=== PATIENT | female | born 1990 | race Caucasian/White ===

== ENCOUNTER 2020-04-10 16:20 | Emergency (ER) | payer OTHER ==
[~2020-04-10] VITALS: Ht 162.6 cm; Wt 61.4 kg
[2020-04-10] MEDS ORDERED: IRON1TAB2 PO (16:34)
[2020-04-10] MEDS ORDERED: PURE500C5 PO (16:34)
[2020-04-10] MEDS ORDERED: ASPI1CHW3 PO (16:34)
[2020-04-10] MEDS ORDERED: VALT1TAB PO (16:34)
[2020-04-10] MEDS ORDERED: ZOLO50TA PO (16:34)
[2020-04-10 17:35] LABS: HEMATOCRIT 34.6 % (36.0-47.0); HEMOGLOBIN 11.2 g/dl (12.0-15.5); MEAN CORPUSCULAR HEMOGLOBIN 29.3 pg (27.0-33.0); MEAN CORPUSCULAR HGB CONC 32.4 g/dl (32.0-36.5); MEAN CORPUSCULAR VOLUME 90.6 fl (80.0-96.0); PLATELET COUNT, AUTOMATED 332 10^3/uL (150-450); RED BLOOD COUNT 3.82 10^6/uL (4.00-5.40); WHITE BLOOD COUNT 12.8 10^3/uL (4.0-10.0)
--- NOTE | 2020-04-10 19:46 | REPVR ---
PROCEDURE INFORMATION: Exam: US , Limited Exam date and time: 04/10/2020 6:59 PM Age: 30 years old Clinical indication: Lmp or gestational age (in weeks): 15; Other: Vag bleeding; ; Additional info: Bleeding/cramping TECHNIQUE: Imaging protocol: Real-time ultrasound of the maternal uterus with image documentation. Exam focused on the clinical indication. COMPARISON: No relevant prior studies available. FINDINGS: Single intrauterine is present in breech presentation. Placenta is anterior and free of the cervical os. Cervix measures 3.2 cm in length with closed internal os. Amniotic fluid volume is lower limit normal, with 4 quadrant index of 9.3 cm. heart motion is regular in rhythm with a rate of 156 beats/min. survey and biometric measurements were not obtained IMPRESSION: Single IUP in breech presentation with no placental abnormality, with closed cervix and normal amniotic fluid volume. Electronically signed by: Hematn Valencia On 04/10/2020 19:46:34 PM
[2020-04-10 20:22] VITALS: BP 130/69
== END 2020-04-10 20:26 | disposition home or self-care (01) ==
LOC: M ED 16:20
DX: O46.92 Antepartum hemorrhage, unspecified, second trimester (principal); O26.899 Other specified pregnancy related conditions, unspecified trimester; R10.2 Pelvic and perineal pain; O99.512 Diseases of the respiratory system complicating pregnancy, second trimester; J45.909 Unspecified asthma, uncomplicated; O99.332 Smoking (tobacco) complicating pregnancy, second trimester; Z3A.15 15 weeks gestation of pregnancy; Z79.899 Other long term (current) drug therapy

== ENCOUNTER 2020-05-25 18:24 | Outpatient (CLI) | payer OTHER ==
[~2020-05-25 18:24] MED LIST: ASPI1CHW3 PO; IRON1TAB2 PO; PURE500C5 PO; VALT1TAB PO; ZOLO50TA PO
[2020-05-25 18:38] VITALS: BP 126/65
[2020-05-25] MEDS ORDERED: PEPC1TAB5 PO (18:59)
[2020-05-25 19:15] LABS: APPEARANCE, URINE CLEAR (CLEAR); BACTERIA, URINE AUTO NEGATIVE (NEGATIVE); BILIRUBIN, URINE AUTO NEGATIVE (NEGATIVE); BLOOD, URINE BLOOD NEGATIVE (NEGATIVE); COLOR, URINE COLORLESS (YELLOW); GLUCOSE, URINE (UA) AUTO NEGATIVE (NEGATIVE); KETONE, URINE AUTO NEGATIVE (NEGATIVE); LEUKOCYTE ESTERASE, URINE AUTO NEGATIVE (NEGATIVE); NITRITE, URINE AUTO NEGATIVE (NEGATIVE); PROTEIN, URINE AUTO NEGATIVE (NEGATIVE); RBC, URINE AUTO 0 /HPF (0-3); SQUAMOUS EPITHELIAL CELL UR AU 0 /HPF (0-6); UROBILINOGEN, URINE AUTO 0.2 mg/dL (0.0-2.0); WBC, URINE AUTO 0 /HPF (0-3)
[2020-05-25] MEDS ORDERED: ACETAMINOPHEN 500 MG TAB PO ONE (21:30)
--- NOTE | 2020-05-25 21:42 | REPVR ---
PROCEDURE INFORMATION: Exam: US ; Follow up Exam date and time: 05/25/2020 9:21 PM Age: 30 years old Clinical indication: Lmp or gestational age (in weeks): 22; Antepartum complications; Bleeding; ; Additional info: Subchorionic 8x7x. 8 cm vaginal bleeding need cervical length TECHNIQUE: Imaging protocol: Transabdominal ultrasound of the uterus, real time with image documentation. Follow-up (eg, re-evaluation of size by measuring standard growth parameters and amniotic fluid volume, re-evaluation of organ system(s) suspected or confirmed to be abnormal on a previous scan). COMPARISON: Obs. Limited, [facility] [place] 04/10/2020 6:31 PM FINDINGS: Gestation: Single intrauterine fetus. heart rate: heartbeat of 145 bpm. Presentation: Cephalic presentation. anatomy: The intracranial structures, nose/lips, face, spine, four-chamber heart, LVOT, RVOT, stomach, cord, cord insertion and left kidney are normal. There is mild right renal caliectasis. There is suggestion of a right clubfoot. The remaining extremities are within normal limits. Placenta: Posterior subchronic hemorrhage measuring 9.6 x 1.4 x 4.9 cm. Anterior placenta. BIOMETRY: Gestational age (AUA): The composite gestational age by ultrasound is 21 weeks 5 days. Estimated due date (AUA): The EDC is 09/30/2020. Estimated weight: The estimated weight is 457 grams and is 37th percentile. Biparietal diameter: The BPD measures 5.1 cm suggesting an age of 21 weeks 3 days. Head circumference: The head circumference measures 18.9 cm suggesting an age of 21 weeks 1 day. Abdominal circumference: The abdominal circumference measures 16.8 cm suggesting an age of 21 weeks 6 days. Femur length: The femur length measures 3.8 cm suggesting an age of 22 weeks 1 day. MATERNAL: Cervix: The cervix is closed and measures 4.0 cm. IMPRESSION: 1. Single live intrauterine fetus in cephalic presentation with a composite age of 21 weeks 5 days. The EDC is 09/30/2020. 2. Posterior subchronic hemorrhage which is of similar size overall since 04/10/2020. 3. Right clubfoot and mild right renal caliectasis. Electronically signed by: Yefri Myers On 05/25/2020 21:42:44 PM
--- NOTE | 2020-05-25 23:53 | IPNPDOC ---
Text Note Date of Service The patient was seen on 05/25/20. NOTE Item Value Date Time Urine Color COLORLESS 05/25/201849 Urine Appearance CLEAR 05/25/201849 Urine pH 7.0 UNITS 05/25/201849 Urine Specific [place] 1.000 L 05/25/201849 Urine Protein NEGATIVE mg/dL 05/25/201849 Urine Glucose (Auto)(UA) NEGATIVE mg/dL 05/25/201849 Urine Ketones (Auto) NEGATIVE mg/dL 05/25/201849 Urine Blood NEGATIVE 05/25/201849 Urine Nitrite NEGATIVE 05/25/201849 Urine Bilirubin NEGATIVE 05/25/201849 Urine Urobilinogen 0.2 mg/dL 05/25/201849 Urine Leukocyte Esterase (Auto) NEGATIVE 05/25/201849 Urine WBC (Auto) 0 /HPF 05/25/201849 Urine RBC (Auto) 0 /HPF 05/25/201849 Urine Hyaline Casts (Auto) 0 /LPF 05/25/201849 Urine Bacteria (Auto) NEGATIVE 05/25/201849 Urine Squamous Epithelial Cells 0 /HPF 05/25/201849 30 YO SEEN AT 22 WEEKS LMP12/23/19 EDC 09/28/20. HISTORY CRAMPING PAST HISTORY PTD AT 36 WEEKS IOL FOR CHOLESTASIS HISTORY OF SIDS DEPRESSION DUE TO LOSS, MORNING SEES BH ON ZOLOFT. PTL AT 33.3 WEEKS MGSO4 WAS 3 CM RBBB LEEP CERVIX HSV PROPHYLAXIS ASTHMA SMOKER GRIEF LOSS UNRESOLVED SUBCHORIONIC HEMORRHAGE AT 13 WEEKS CONTINUES TO BLEED. US 04/10/2020 NOT REPORTED BUT IMAGES DEMONSTRATE 11X4X2 CM POSTERIOR . REPEAT US SIZE 8.5X 6.74X .8 CM CERVICAL LENGTH 3.0 CM NO FUNNELING TODAY CAME WITH CRAMPING AND BLEEDING. STERILE SPECULUM EXAM OLD BLOOD CERVIX POSTERIOR CLOSED ATTEMPTED FFN BUT DUE TO BLOOD NOT EFFECTIVE VAGINAL MICRO EXAM BV NEGATIVE. US TODAY VERTEX SUBCHORIONIC HEMORRHAGE 9.6X1.4X4.9CM POSTERIOR EFW AT 37%. CERVIX CLOSED 4.0 CM RIGHT CLUB FOOT . NO LOW LYING PLACENTA . URINE 1000 PH 7.0 ALL NEGATIVE PLAN . REVIEWED PROGESTERONE IM OR SUPPOSITORY MAY BE HELPFUL, REVIEWED SMOKING CESSATION, REVIEWED CERVICAL LENGTH Q 2 WEEKS AND GROWTH US AT 28 WEEKS 32 WEEKS AND MONITORING AT 32 WEEKS EXPRESSED UNDERSTANDING OF PLAN 1 HOUR ALL QUESTIONS ANSWERED . PATIENT DISCHARGED WITH PRECAUTIONS UNDELIVERED . STEROID OPTION REVIEWED , VS,Fishbone, I+O VS, Fishbone, I+O Vital Signs Date Time Temp Pulse Resp B/P (MAP) Pulse Ox O2 Delivery O2 Flow Rate FiO2 05/25/20 18:38 75 126/65 (85) 05/25/20 18:37 98.7 18 Ras Bonilla MD May 25, 2020 23:40
== END 2020-05-25 22:18 | disposition home or self-care (01) ==
LOC: M LDO 18:24
PROVIDERS: ATTEND Obstetrics & Gynecology
DX: O46.8X2 Other antepartum hemorrhage, second trimester (principal); Z3A.22 22 weeks gestation of pregnancy
CPT/HCPCS: 76816; 81001; G0378; G0463

== ENCOUNTER 2020-08-06 12:06 | Outpatient (CLI) | payer OTHER ==
[~2020-08-06] VITALS: Ht 162.6 cm; Wt 67.3 kg
[~2020-08-06 12:06] MED LIST changes: +PEPC1TAB5 PO
[2020-08-06 12:25] VITALS: BP 112/76
== END 2020-08-06 13:18 | disposition home or self-care (01) ==
LOC: M LDO 12:06
PROVIDERS: ATTEND Obstetrics & Gynecology
DX: O46.93 Antepartum hemorrhage, unspecified, third trimester (principal); Z3A.32 32 weeks gestation of pregnancy
CPT/HCPCS: 59025; 76815; G0378; G0463

== ENCOUNTER 2020-08-19 06:02 | Observation (INO) | payer OTHER ==
[2020-08-19] VITALS (11 sets, daily range): BP systolic 113–133; BP diastolic 59–86
[~2020-08-19] VITALS: Ht 162.6 cm; Wt 70.0 kg
[2020-08-19 06:23] LABS: HEMATOCRIT 35.9 % (36.0-47.0); HEMOGLOBIN 11.8 g/dl (12.0-15.5); MEAN CORPUSCULAR HGB CONC 32.9 g/dl (32.0-36.5); MEAN CORPUSCULAR VOLUME 91.3 fl (80.0-96.0); PLATELET COUNT, AUTOMATED 193 10^3/uL (150-450); RED BLOOD COUNT 3.93 10^6/uL (4.00-5.40); WHITE BLOOD COUNT 8.6 10^3/uL (4.0-10.0)
[2020-08-19 06:34] LABS: INR 0.87; PARTIAL THROMBOPLASTIN TIME 26.1 SECONDS (24.2-38.5)
--- NOTE | 2020-08-19 07:05 | IPNPDOC ---
Text Note Date of Service The patient was seen on 08/19/20. NOTE Mirian is a 30yo at 34+2wks presenting for c/o waking up to vaginal b leeding in her sleep. She reports she had heavy VB with passage of clots. Denies DFM or LOF. Endorses feeling ctx's but states they are not painful. She reports she was adhering to pelvic rest precautions with no intercourse and no heavy lifting. She denies any pain at this time. Notes bleeding has decreased since arrival to L&D. Antepartum course c/b: Asthma LEEP HSVII Tobacco use in GERD IBS Anxiety/depression Son of SIDS at 4 months of age Vitals: normotensive, afebrile NST: reactive [place]: uterine irritability seen PE: General: AAOx3, in NAD, resting comfortably in bed HEENT: NC/AT airway patent ad self-maintained ABD: soft, nontender, gravid (S=D) Ext: no edema noted : small amount of old blood in vagina SVE: /- Rectum: large amout of stool palpated in recturm during SVE Labs: Laboratory Tests 08/19/20 06:11 RADS: TAUS: cephalic presentation, BERTIN 15.2cm, +FM, +FCA at 150pm. A/P: 30yo at 34+2wks presenting for c/o heavy VB. Patient has known history of large MARCY. Suspect etiology of bleeding is from MARCY. Mother and status reassuring at this time. Abruption labs (CBC, coags, fibrinogen, KB, 2&C for 2U) BTMZ 12mg q24h x2 doses GBS collected Urine drug screen pending Continuous EFM Patient on bedrest with pathroom privileges NPO except and ice chips Plan for expectant mgmt at this time in observation until 2nd dose of BTMZ with low threshold to move to delivery if develops worsening sx. FAITH, OB staff VS,Amie, I+O VS, Amie, I+O Laboratory Tests 08/19/20 06:11 JACEY CUEVAS DO Aug 19, 2020 07:05
[2020-08-19 08:22] LABS: AMPHETAMINES URINE REFLEX NEGATIVE (NEGATIVE); BARBITURATES URINE REFLEX NEGATIVE (NEGATIVE); BENZODIAZEPINES URINE REFLEX NEGATIVE (NEGATIVE); CANNABINOIDS URINE REFLEX NEGATIVE (NEGATIVE); COCAINE METABOLITE URINE REFLE NEGATIVE (NEGATIVE); METHADONE URINE REFLEX NEGATIVE (NEGATIVE); OPIATES URINE REFLEX NEGATIVE (NEGATIVE); PHENCYCLIDINE URINE REFLEX NEGATIVE (NEGATIVE)
[2020-08-19 14:13] LABS: BASO % 0.1 % (0.0-1.0); HEMATOCRIT 34.3 % (36.0-47.0); HEMOGLOBIN 11.4 g/dl (12.0-15.5); LYMPH # 0.8 10^3/uL (1.5-5.0); LYMPH % 8.2 % (24.0-44.0); MEAN CORPUSCULAR HEMOGLOBIN 30.5 pg (27.0-33.0); MEAN CORPUSCULAR HGB CONC 33.2 g/dl (32.0-36.5); MEAN CORPUSCULAR VOLUME 91.7 fl (80.0-96.0); MONO # 0.1 10^3/uL (0.0-0.8); NEUTROPHILS # 8.2 10^3/uL (1.5-8.5); NEUTROPHILS % 89.9 % (36.0-66.0); PLATELET COUNT, AUTOMATED 187 10^3/uL (150-450); RED BLOOD COUNT 3.74 10^6/uL (4.00-5.40); WHITE BLOOD COUNT 9.1 10^3/uL (4.0-10.0)
[2020-08-19 14:21] LABS: INR 0.92; PROTHROMBIN TIME 12.6 SECONDS (12.5-14.3)
[2020-08-19 14:22] LABS: PARTIAL THROMBOPLASTIN TIME 25.4 SECONDS (24.2-38.5)
--- NOTE | 2020-08-19 23:30 | IPNPDOC ---
Text Note Date of Service The patient was seen on 08/19/20. NOTE Mirian reports that her VB has decreased to only spotting when wiping after u sing the bathroom. She has had a BM without difficulty. She endorses good FM. Denies feeling pain with ctx's but endorses occasional ctx's. Denies LOF. She is tolerating a regular diet. Vitals: normotensive, afebrile FHRT: cat I with baseline 140bpm with mod variability, +accels, no decels Past[place]: rare ctx's hourly that patient not feeling PE: General: AAOx3, in NAD, resting comfortably in bed HEENT: NC/AT airway patent ad self-maintained ABD: soft, nontender, gravid (S=D) Ext: no edema noted : no blood seen on perineum Labs: Abruption labs have remained stable since admission on serial testing Laboratory Tests 08/19/20 06:11 08/19/20 14:04 A/P: 30yo at 34+2wks admitted to obs for concern of heavy VB in the setting of a MARCY that has been monitored throughout her antepartum course now with resolved VB to spotting. Reassuring and maternal status. Stable labs on serial testing with neg KB. At this time, do not suspect placental abruption but passage of clot from MARCY. Will continue to monitor closely in observation at this time. Plan to give second dose of BTMZ at 24hr milka and if patient remains stable will disposition home at that time. Patient in agreement with plan of care and desires to proceed. All questions answered. Home meds ordered. VS,Fishbone, I+O VS, Fishbone, I+O Laboratory Tests 08/19/20 06:11 08/19/20 14:04 Vital Signs Date Time Temp Pulse Resp B/P (MAP) Pulse Ox O2 Delivery O2 Flow Rate FiO2 08/19/20 19:32 97.8 77 18 126/64 (84) JACEY CUEVAS DO Aug 19, 2020 23:26
[2020-08-20 02:41] VITALS: BP 111/59
--- NOTE | 2020-08-20 05:19 | IPNPDOC ---
Text Note Date of Service The patient was seen on 08/20/20. NOTE Mirian reports pain in the left side of her abdomen and her back. Denies feel ing ctx's but rather pain in her side/back. Endorses good FM. Reports VB has resolved. Denies LOF. She is tolerating a regular diet. Vitals: normotensive, afebrile FHRT: cat I with baseline 140bpm with mod variability, +accels, no decels [place]: ctx's q5-8 min irregularly PE: General: AAOx3, in NAD, resting comfortably in bed HEENT: NC/AT airway patent ad self-maintained ABD: soft, nontender, gravid (S=D) Ext: no edema noted : SVE unchanged at with no blood seen on glove Labs: Abruption labs have remained stable since admission on serial testing A/P: 30yo at 34+3wks admitted to OBS for c/o VB with bleeding now resolved. Patient has been resting all night but had onset of left-sided abdominal/flank and back pain. SVE unchanged from admission with no VB noted on exam. Appreciated patient has not been repositioning in the bed and laying at an angle all night. Patient repositioned to right side-lying with bed flat with improvement in her pain. FHRT cat I. Will give 500ml LR bolus now and 1000mg of tylenol for additional pain relief. Plan to give 2nd dose of BTMZ at 24hrs. If patient remains stable, anticipate disposition home later this morning with close outpatient f/u. All questions answered. Larry, OB Staff VS,Amie, I+O VS, Amie I+O Laboratory Tests 08/19/20 06:11 08/19/20 14:04 Vital Signs Date Time Temp Pulse Resp B/P (MAP) Pulse Ox O2 Delivery O2 Flow Rate FiO2 08/19/20 22:59 85 18 131/71 (91) 08/19/20 22:04 98.9 I&O- Last 24 Hours up to 6 AM 08/20/20 06:00 Intake Total 3060 ml Balance 3060 ml JACEY CUEVAS DO Aug 20, 2020 05:19
[2020-08-20 05:52] VITALS: BP 112/56
[2020-08-20 07:08] VITALS: BP 121/65
[2020-08-20 08:05] VITALS: BP 106/55
== END 2020-08-20 09:25 | disposition home or self-care (01) ==
LOC: M LDO 06:02 → M OBS 06:03 → M LDO 08-20 09:25
DX: O99.613 Diseases of the digestive system complicating pregnancy, third trimester (principal); K59.00 Constipation, unspecified; O46.93 Antepartum hemorrhage, unspecified, third trimester; Z3A.34 34 weeks gestation of pregnancy; O99.513 Diseases of the respiratory system complicating pregnancy, third trimester; J45.909 Unspecified asthma, uncomplicated; K21.9 Gastro-esophageal reflux disease without esophagitis
CPT/HCPCS: 36415; 59025; 76815; 80307; 85025; 85027; 85384; 85460; 85610; 85730; 86850; 86900; 86901; 86920; 87081; 96360; 96361; 96372; 96375; J0702

== ENCOUNTER 2020-08-23 10:00 | Outpatient (CLI) | payer OTHER ==
[~2020-08-23] VITALS: Ht 162.6 cm; Wt 69.7 kg
[2020-08-23 10:23] VITALS: BP 128/77
[2020-08-23] MEDS ORDERED: PRENTAB9 PO (10:31)
[2020-08-23 12:21] VITALS: BP 116/73
[2020-08-23 12:54] VITALS: BP 127/77
--- NOTE | 2020-08-23 13:14 | IPNPDOC ---
Obstetrical Progress Note Date of Service Aug 23, 2020 Subjective 30 yo @ 34+6 by lmp c/w 9w5d us who presents for labor check. reports she has been otto since midnight, cx were initially every 3-5min, now has spaced out to 6-8min. she reports that she is here because of pain associated with contractions. she reports that she has also noted some pink discharge assocated with mucus. she denies any LOF, DM. She has no other concerns. FHR: 140, Mod justin,+accels,-Decels-- Reactive NST SVE: 2/70/-2, Unchanged 2hrs later after observation ABD: TAUS: Cephalic, MVP: 5.3cm ext: Grossly normal A/P 30 yo @ 34+6 by lmp c/w 9w5d us who presents for labor check.Hemodynamically sable. unchanged after 2 hrs of observation, was discharge on thursday and was 2 cm at that time. not in labor. -Reactive NST -NORMAL Fluids -Given strict return precautions -F/U in a week for COB as previously scheduled. Objective Vital Signs Date Time Temp Pulse Resp B/P (MAP) Pulse Ox O2 Delivery O2 Flow Rate FiO2 08/23/20 10:28 97 08/23/20 10:23 99.2 95 18 128/77 (94) JOSEE HANNAH MD Aug 23, 2020 13:14
== END 2020-08-23 13:07 | disposition home or self-care (01) ==
LOC: M LDO 10:00
PROVIDERS: ATTEND Obstetrics & Gynecology
DX: O47.02 False labor before 37 completed weeks of gestation, second trimester (principal); Z3A.34 34 weeks gestation of pregnancy
CPT/HCPCS: 59025; 76815; G0378; G0463

== ENCOUNTER 2020-08-23 22:59 | Inpatient (IN) | payer OTHER ==
[~2020-08-23] VITALS: Ht 162.6 cm; Wt 70.7 kg
[~2020-08-23 22:59] MED LIST changes: +PRENTAB9 PO
[2020-08-23 23:25] VITALS: BP 138/82
[2020-08-24] VITALS (44 sets, daily range): BP systolic 102–156; BP diastolic 54–93
[2020-08-24] MEDS ORDERED: OXYTOCIN DRIP 30 UNITS in IV 1 EA IV PRN (00:25)
--- NOTE | 2020-08-24 01:21 | HPEPDOC ---
Obstetrical History & Physical General Date of Admission Aug 23, 2020 at 23:49 History of Present Illness Ms. Raymundo is a 30yo at 35+0 by LMP and 9wk US presenting in early labor. She was admitted over the weekend for rule out pre-term labor and received a course of BMTZ. She was seen earlier today and had not made cervical change. She now notes her contractions are more painful and regular. She endorsed light vaginal bleeding but has had bleeding throughout her due to subchorionic hematoma. She denied decreased FM. She denied n/v/d, cp, sob, padilla, v isual changes, f/c, vaginal discharge, urinary sx. Antepartum Course Pre- weight (lbs.): 133 Admission Weight (lbs.): 154 Change in Weight (lbs.): 21 Past Medical History Past Obstetrical History : Past Obstetrical History: Multigravida (G1 2013 VAVD 38+2 6#10 PPROM at 36wk PTL at 32wk. G2 2016 36+0 7#10 IOL for IHCP (recieved Mg/BMTZ) PTL at 33wk of SIDS at 4mo. 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 History: Human papillomavirus(HPV) (LEEP), Herpes simplex virus(HSV) Past Medical History Medical History heart murmur as child, RBBB/tachycardia MAY 2018, asthma, GERD, IBS, MAMADOU Surgical History: Other (WTE, T+A, LEEP) Family History Significant Family History: No pertinent family hx Social History Marital Status: Family situation: Spouse/partner home Psychosocial History: No pertinent psych hx * Smoker: former Smoker Alcohol: Denies Drugs: denies Imunizations Tdap status: current Influenza Status: current Allergies Coded Allergies: No Known Drug Allergies (Verified Allergy, Unknown, 04/10/20) Medications Scheduled Ascorbic Acid (Vitamin C) 500 Mg Capsule.er, 500 MG PO BID Aspirin (Aspirin) 81 Mg Tab.chew, 1 TAB PO DAILY for pain Famotidine (Pepcid) 20 Mg Tablet, 1 TAB PO BID Ferrous Sulfate (Iron) 325 Mg Tablet, 1 TAB PO BID No.137/Iron/Folic Acd ( Vitamin Tablet) 1 Each Tablet, 1 TAB PO DAILY Sertraline Hcl (Zoloft) 50 Mg Tablet, 50 MG PO DAILY Valacyclovir HCl (Valtrex) 1,000 Mg Tablet, 1 GRAM PO BID Physical Examination Physical Examination GENERAL: Alert and oriented times three. BREAST: . ABDOMEN: Gravid and non-tender to touch. FETUS: Is vertex (VTX) by sterile vaginal examination (SVE), fetus is vertex (VTX) by ultrasound HEART RATE: Regular rate and rhythm. LUNGS: Clear to auscultation (CTA). EXTREMITIES: No edema. No clonus. Laboratory Data 24H LABS Laboratory Tests 2 08/23/20 23:59: Serology Scanned Report Hepatitis B Testing Urine Culture: No Growth Pertinent Laboratoy Data Blood Type: O+ RBC Antibody Screen: Negative HIV: Negative Hepatitis B: Negative Rapid Plasma Reagin: Nonreactive Rubella: Immune Varicella: Nonreactive Chlamydia/Gonorrhea: Negative Group B Streptococcus: Negative ([facility]) Quad Screen Test: Negative Cystic Fibrosis: Negative Glucose Tolerance Test: 149 Anatomy Ultrasound Placenta Location: Anterior Normal Anatomy: No (initial concern for developing pyelectasis never met criteria, subchorionic hematoma, HC <2%ile (not meeting criteria for microcephaly), bilateral club foot) Estimated Weight (grams): 2306 Steroid Therapy Steroid Therapy: Yes Vaginal Examination Dilation: 5 cm Effacement: 90% Station: -2 Cervical Consistency: Soft Cervical Position: Anterior Presentation: Cephalic presentation (by US and exam) Assessment Heart Rate (FHR): 150 Variability: Moderate Accelerations: Positive Decelerations: Late Tocometer Contractions: Yes Frequency: irregular Multi-drug resistant Organism: No history of MDRO Assessment/Plan Assessment Ms. Raymundo is a 30yo at 35+0 by LMP and 9wk US presenting in early labor. She was admitted over the weekend for rule out pre-term labor and received a course of BMTZ. She was seen earlier today and had not made cervical change. She was 2cm this morning and is now 5/90/-2. On NST she has a CAT II tracing with occasional late decelerations but there is good variability and they are intermittent will continue with intrauterine resuscitation. She endorsed light vaginal bleeding but has had bleeding throughout her due to subchorionic hematoma. APC 1. elevated 1h GTT, normal finger sticks 2. pap ASCUS HPV neg MAR 2020 3. varicella non-immune 4. hitory of PPROM at 36wk (but delivery at 38wk), delivery at 36wk for IHCP 5. possible developing pyelectsis, resolved 6. large subchorionic hematoma, "not well demonstrated" on last scan 7. HC <2%ile, not meeting criteria for FGR or microcephaly 8. last baby to SIDS and sister recently , patient with anxiety/depression on zoloft and seeing 9. baby with bilateral club foot on US, normal quad screen 10. history of LEEP 11. heart murmur as child, RBBB/tachycardia in patient saw cards and says normal work up, never received records 12. genital HSV on valtrex - negative spec on admit 13. pre- normocytic anemia on Fe/vit C 14. former smoker currently using nicotine patches Rh pos, GBS neg ([facility]), cephalic by US, EFW 2306g on , placenta anterior Admit and orient. Plan to passively monitor until patient reaches 6cm then will proceed with active management as indicated NICU notified Cover Operator and consent. Diet: clears Group B Streptococcus (GBS) [negative]. Labs and intravenous (IV) per unit protocol. Counseled on Pitocin and induction of labor (IOL). Lactated Ringers (LR): saline lock, PRN LR Anticipate [normal spontaneous delivery ()]. C-S as appropriate. BENJI VAZQUEZ DO Aug 24, 2020 01:21
[2020-08-24 01:34] LABS: HEMATOCRIT 35.3 % (36.0-47.0); HEMOGLOBIN 11.8 g/dl (12.0-15.5); MEAN CORPUSCULAR HEMOGLOBIN 30.2 pg (27.0-33.0); MEAN CORPUSCULAR HGB CONC 33.4 g/dl (32.0-36.5); MEAN CORPUSCULAR VOLUME 90.3 fl (80.0-96.0); PLATELET COUNT, AUTOMATED 212 10^3/uL (150-450); RED BLOOD COUNT 3.91 10^6/uL (4.00-5.40); WHITE BLOOD COUNT 14.9 10^3/uL (4.0-10.0)
[2020-08-24] MEDS ORDERED: FENTANYL 2MCG/ML ROPIVACAINE 0.2% IN 0.9% NACL 100ML IVBAG As Ordered ONE (02:14)
[2020-08-24] MEDS ORDERED: LACTATED RINGER'S 1000 ML IV PRN (03:05)
[2020-08-24] MEDS ORDERED: FENTANYL/ROPIVACAINE/NACL BAG 100 ML EPIDURAL SCH (03:05)
[2020-08-24] MEDS ORDERED: diphenhydrAMINE 50MG/ML VIAL (J1200) IV PRN (03:05)
[2020-08-24] MEDS ORDERED: REFRIGERATOR IV KEYS XX PRN (03:05)
[2020-08-24] MEDS ORDERED: NALOXONE INJ 0.4MG/1ML VIAL (J2310 PER 1MG) IV PRN (03:05)
[2020-08-24] MEDS ORDERED: EPIDURAL/PCA KEYS XX PRN (03:05)
[2020-08-24] MEDS ORDERED: ePHEDrine SULFATE 25 MG/5 ML(5MG/ML) SYRINGE IV PRN (03:05)
[2020-08-24] MEDS ORDERED: EPIDURAL COMMENT XX SCH (03:05)
[2020-08-24] MEDS ORDERED: ONDANSETRON 4MG/2ML VIAL IV PRN ×2 (03:05→10:20)
--- NOTE | 2020-08-24 07:38 | IPNPDOC ---
Obstetrical Progress Note Date of Service Aug 24, 2020 Subjective To room for report from RN that patient is AL BBOW. Patient is comfortable with epidural. Assessment Heart Rate (FHR): 135 Variability: Moderate Accelerations: Positive Decelerations: None Heart Rate Tracing: Category I Tocometer Contractions: Yes Frequency: regular Sterile Vaginal Examination Dilation: 8 cm Effacement (%): 90% Station: -1 Cervical Consistency: Soft Cervical Position: Anterior Postion/Presentation: Cephalic presentation (by exam) Assessment and Plan Status: Reassuring Anticipate: Vaginal Delivery Additional Comments To room for report from RN that patient is AL BBOW. AROM clear, SVE 8/90/-1. Suspect OP due to lots of posterior palpated space. Plan to reassess in 1-2h or sooner if clinically indicated. Positioning techniques to help resolve OP position. CAT I reactive. BENJI VAZQUEZ DO Aug 24, 2020 07:38
[2020-08-24] MEDS ORDERED: LR 1,000 ML IV SCH (08:30)
[2020-08-24] MEDS: SERTRALINE HCL 50 MG TAB PO SCH (09:00)
[2020-08-24] MEDS ORDERED: ANUSOL HC CREAM 30GM TOP PRN (10:20)
[2020-08-24] MEDS ORDERED: METHYLERGONOVINE MALEATE 0.2 MG TAB PO PRN (10:20)
[2020-08-24] MEDS ORDERED: OXYTOCIN DRIP 30 UNITS in IV 1 EA IV SCH (10:20)
[2020-08-24] MEDS ORDERED: MOM 30ML SUSPENSION UDC PO PRN (10:20)
[2020-08-24] MEDS ORDERED: DIBUCAINE 1% OINTMENT 30GM TOP PRN (10:20)
[2020-08-24 10:28] LABS: CORD GAS ABE V -1.8; CORD GAS HCO3 V 24.8 MEQ/L; CORD GAS O2 SAT V 82.4 %; CORD GAS PCO2 V 49.3 mmHg; CORD GAS PH V 7.32 UNITS; CORD GAS PO2 V 36.6 mmHg; CORD GAS SBC V 22.6 MEQ/L; CORD GAS TCO2 V 26.3 MEQ/L
--- NOTE | 2020-08-24 10:44 | DNPDOC ---
[facility] Delivery Note Delivery Note DATE OF DELIVERY: 08/24/2020 PREDELIVERY DIAGNOSIS: 35-0/7 weeks' gestation and Labor POST DELIVERY DIAGNOSIS: Delivered. PROCEDURE: Spontaneous vaginal delivery SPORTS COORDINATOR: Dr. Josee Hannah ANESTHESIA: Epidural. ESTIMATED BLOOD LOSS: 300 mL. FINDINGS: 4 pound 12 ounce (2230g) female , Score 88, no nuchal cord DELIVERY SUMMARY: Patient is a 30-year-old 3 now para 1202 who was admitted to labor and delivery for labor. She progressed to C/C/+2 and with good maternal effort delivered a viable female infant. The infants head delivered OP and the head was allowed to spontaneously restitute LOP. anterior shoulders delivered with gentle downward traction followed by posterior shoulder and corpus without difficulty. Normal 3-vessel cord clamped x 2 and cut by delivering physician after 1 minute of delayed cord clamping. Spontaneous cry noted. placed on maternal abdomen for [id number] Cord blood obtained. Placenta delivered spontaneously and inspection of the placenta demonstrated that it was intact. The cord insertion appeared normal. The uterus was cleared of all clots and debris. Fundal massage until firm. 30 units of Pitocin administered per protocol and the patient required no additional uterotonics. Inspection of cervix, perineum, and vaginal wall revealed a right labial minora laceration, repaired with 3-0 vicryl . Repeat uterine examination noted uterine tone to be adequate and firm. Mom and infant stayed in L&D in hemodynamic stable condition upon my departure. Sponge, lap and needle count correct x 2. JOSEE HANNAH MD Aug 24, 2020 10:38
[2020-08-24] MEDS ORDERED: SLF 3 ML SYR IV PRN (12:05)
[2020-08-24] MEDS: IBUPROFEN 800 MG TAB PO PRN ×2 (12:08→20:04)
[2020-08-24] MEDS: FAMOTIDINE 20 MG TAB PO SCH ×2 (12:33→20:04)
[2020-08-24] MEDS: SLF 3 ML SYR IV SCH ×2 (14:00→22:44)
[2020-08-24] MEDS: ACETAMINOPHEN 500 MG TAB PO PRN ×2 (16:58→22:43)
[2020-08-24] MEDS: DOCUSATE SODIUM 100MG CAPSULE PO SCH (20:04)
[2020-08-25 00:34] LABS: HEMATOCRIT 31.2 % (36.0-47.0); HEMOGLOBIN 10.4 g/dl (12.0-15.5); MEAN CORPUSCULAR HGB CONC 33.3 g/dl (32.0-36.5); MEAN CORPUSCULAR VOLUME 93.1 fl (80.0-96.0); PLATELET COUNT, AUTOMATED 191 10^3/uL (150-450); RED BLOOD COUNT 3.35 10^6/uL (4.00-5.40); WHITE BLOOD COUNT 16.3 10^3/uL (4.0-10.0)
[2020-08-25 01:01] LABS: ALBUMIN 2.3 GM/DL (3.2-5.2); ALT/SGPT 12 U/L (12-78); BILIRUBIN,TOTAL 0.2 MG/DL (0.2-1.0); BLOOD UREA NITROGEN 7 MG/DL (7-18); CALCIUM LEVEL 8.8 MG/DL (8.5-10.1); CARBON DIOXIDE LEVEL 27 MEQ/L (21-32); CHLORIDE LEVEL 107 MEQ/L (98-107); CREATININE FOR GFR 0.48 MG/DL (0.55-1.30); GLOMERULAR FILTRATION RATE > 60.0 (>60); GLUCOSE, FASTING 97 MG/DL (70-100); LDH LACTATE DEHYDROGENASE 235 U/L (84-246); POTASSIUM SERUM 4.1 MEQ/L (3.5-5.1); SODIUM LEVEL 139 MEQ/L (136-145); TOTAL PROTEIN 5.3 GM/DL (6.4-8.2); URIC ACID 4.4 MG/DL (2.6-6.0)
[2020-08-25] MEDS: IBUPROFEN 800 MG TAB PO PRN ×3 (04:03→21:58)
[2020-08-25] MEDS: SLF 3 ML SYR IV SCH (05:35)
[2020-08-25 06:00] VITALS: BP 135/88
[2020-08-25] MEDS: DOCUSATE SODIUM 100MG CAPSULE PO SCH ×2 (08:11→20:24)
[2020-08-25] MEDS: FAMOTIDINE 20 MG TAB PO SCH ×2 (08:11→20:24)
[2020-08-25] MEDS: SERTRALINE HCL 50 MG TAB PO SCH (08:11)
[2020-08-25] MEDS: PRENATAL VITAMINS CHEWABLE TABLET PO SCH (08:11)
--- NOTE | 2020-08-25 08:13 | IPNPDOC ---
Progress Note Date of Service: Aug 25, 2020 Day#: 1 Progress Note SUBJECT: Ms. Raymundo is a 30yo PPD1 s/p at 35wk for labor, 4 pound 12 ounce (2230g) female infant, Score 8/8. She has been ambulating, voiding spontaneously without issue and tolerating regular diet. Breast feeding without issue. Reports lochia is [like a normal period]. Patient is ambulating well. [Reports some cramping with . Denies any pain. Voiding and stooling without difficulty]. OBJECTIVE: VITAL SIGNS: Within normal limits, afebrile. Alert and oriented times three. No increased WOB Heart rate: non tachy Abdomen: Fundus firm at U-2. Soft, NTTP. [Minimal] lochia. ASSESSMENT: Ms. Raymundo is a 30yo PPD1 s/p at 35wk for labor, 4 pound 12 ounce (2230g) female , Score 8/8. Vitals within normal limits, afebrile, hemodynamically stable with no evidence of infection. APC 1. elevated 1h GTT, normal finger sticks 2. pap ASCUS HPV neg MAR 2020 3. varicella non-immune 4. hitory of PPROM at 36wk (but delivery at 38wk), delivery at 36wk for IHCP 5. possible developing pyelectsis, resolved 6. large subchorionic hematoma, "not well demonstrated" on last scan 7. HC <2%ile, not meeting criteria for FGR or microcephaly 8. last baby to SIDS and sister recently , patient with anxiety/depression on zoloft and seeing 9. baby with bilateral club foot on US, normal quad screen 10. history of LEEP 11. heart murmur as child, RBBB/tachycardia in patient saw [facility] and says normal work up, never received records 12. genital HSV on valtrex - negative spec on admit 13. pre- normocytic anemia on Fe/vit C 14. former smoker currently using nicotine patches PLAN: 1. Discharge to home likely tomorrow 2. Tylenol and Motrin for pain. 3. Encourage breast feeding and ambulation. 4. Discussed contraception patient is unsure, educated on risk of close interval 5. Routine PP visit in 2 and 6 weeks in clinic. 6. Discussed return precautions at length. 7. Recommend varicella vaccine 8. Recommend close interval follow up for anxiety/depression 9. Recommend continuation of smoking cessation and nicotine patches VS, I&O, 24H, Fishbone Vital Signs/I&O Vital Signs Date Time Temp Pulse Resp B/P (MAP) Pulse Ox O2 Delivery O2 Flow Rate FiO2 08/25/20 06:00 96.9 71 16 135/88 (104) 99 Room Air I&O- Last 24 Hours up to 6 AM 08/25/20 06:00 Intake Total 2400 ml Output Total 1825 ml Balance 575 ml Laboratory Data 24H LABS Laboratory Tests 2 08/24/20 10:08: Cord Venous Blood pH 7.320, Cord Venous Blood PCO2 49.3, Cord Venous Blood PO2 36.6, Cord Venous Blood HCO3 24.8, Cord Venous Blood Total CO2 26.3, Cord Venous Base Excess (Actual) -1.8, Cord Venous Base Excess (Standard) 22.6, Cord Venous Blood Oxygen Saturation 82.4 08/25/20 00:22: Nucleated Red Blood Cells % (auto) 0.0, Anion Gap 5L, Glomerular Filtration Rate > 60.0, Uric Acid 4.4, Calcium Level 8.8, Total Bilirubin 0.2, Aspartate Amino Transf (AST/SGOT) 18, Alanine Aminotransferase (ALT/SGPT) 12, Alkaline Phosphatase 94, Lactate Dehydrogenase 235, Total Protein 5.3L, Albumin 2.3L, Albumin/Globulin Ratio 0.8L CBC/BMP Laboratory Tests 08/25/20 00:22 BENJI VAZQUEZ DO Aug 25, 2020 08:13
[2020-08-25 17:52] VITALS: BP 129/81
[2020-08-25] MEDS: ACETAMINOPHEN 500 MG TAB PO PRN (20:24)
[2020-08-26 06:00] VITALS: BP 131/80
[2020-08-26] MEDS ORDERED: IBUP80TA PO (07:30)
[2020-08-26] MEDS ORDERED: ACET-683 PO (07:30)
--- NOTE | 2020-08-26 07:34 | DS.PDOC ---
Discharge Summary General Date of Admission Aug 23, 2020 at 23:49 Date of Discharge Aug 26, 2020 Discharge Summary HOSPITAL COURSE: Ms. Raymundo is a 30 yo G3 now P1201 who underwent an uncomplicated on 24Aug2020 after being admitted for active labor. Her course was unremarkable. On her day of discharge she met all appropriate discharge criteria. She was ambulating, voiding, tolerating a regu lar diet, and had minimal lochia. DISCHARGE MEDICATIONS: Please see below. ALLERGIES: Please see below. PHYSICAL EXAMINATION ON DISCHARGE: VITAL SIGNS: Please see below. GENERAL: AAOX3, NAD ABDOMINAL EXAMINATION: Fundus firm at U-2. No fundal tenderness EXTREMITIES: No edema PSYCHIATRIC EXAMINATION: Affect appropriate LABORATORY DATA: Please see below. ACTIVITY: Pelvic rest for 6 weeks DIET: Regular DISCHARGE PLAN: Discharge home DISPOSITION: Discharge home or to [facility] on 26Aug2020. DISCHARGE INSTRUCTIONS: 1. Nothing in the vagina for 6 weeks ITEMS TO FOLLOWUP ON ON OUTPATIENT: 1. Call to schedule a visit for 6 weeks post delivery 2. hand [facility] supervisor meds at [place] on Thursday DISCHARGE CONDITION: Stable. TIME SPENT ON DISCHARGE: Greater than 20 minutes. Lam Gimenez DO Vital Signs/I&Os Vital Signs Date Time Temp Pulse Resp B/P (MAP) Pulse Ox O2 Delivery O2 Flow Rate FiO2 08/26/20 06:00 97.9 74 18 131/80 (97) 100 Room Air Discharge Medications Scheduled Ascorbic Acid (Vitamin C) 500 Mg Capsule.er, 500 MG PO BID, (Reported) Famotidine (Pepcid) 20 Mg Tablet, 1 TAB PO BID, (Reported) Ferrous Sulfate (Iron) 325 Mg Tablet, 1 TAB PO BID, (Reported) No.137/Iron/Folic Acd ( Vitamin Tablet) 1 Each Tablet, 1 TAB PO DAILY, (Reported) Sertraline Hcl (Zoloft) 50 Mg Tablet, 50 MG PO DAILY, (Reported) Scheduled PRN Acetaminophen (Acetaminophen) 500 Mg Tablet, 1,000 MG PO Q6HP PRN for PAIN LEVEL 6-10 Ibuprofen (Ibuprofen) 800 Mg Tablet, 800 MG PO Q8HP PRN for PAIN LEVEL 6-10 Allergies Coded Allergies: No Known Drug Allergies (Verified Allergy, Unknown, 04/10/20) LAM GIMENEZ DO Aug 26, 2020 07:34
[2020-08-26] MEDS: DOCUSATE SODIUM 100MG CAPSULE PO SCH (08:34)
[2020-08-26] MEDS: FAMOTIDINE 20 MG TAB PO SCH (08:35)
[2020-08-26] MEDS: SERTRALINE HCL 50 MG TAB PO SCH (08:35)
[2020-08-26] MEDS: PRENATAL VITAMINS CHEWABLE TABLET PO SCH (08:35)
[2020-08-26] MEDS: IBUPROFEN 800 MG TAB PO PRN (08:37)
== END 2020-08-26 14:15 | disposition home or self-care (01) | DRG 807 ==
LOC: M LDO 22:59 → M LDI 23:49 → M OBS 08-24 13:15
PROVIDERS: ADMIT Obstetrics & Gynecology; ATTEND Obstetrics & Gynecology
PROC: 10E0XZZ Delivery of Products of Conception, External Approach (ICD-10-PCS; principal; 2020-08-24)
PROC: 0HQ9XZZ Repair Perineum Skin, External Approach (ICD-10-PCS; 2020-08-24)
DX: O60.14X0 Preterm labor third trimester with preterm delivery third trimester, not applicable or unspecified (principal); Z37.0 Single live birth; Z3A.35 35 weeks gestation of pregnancy; Z79.899 Other long term (current) drug therapy; F41.9 Anxiety disorder, unspecified; F32.9 Major depressive disorder, single episode, unspecified; O99.344 Other mental disorders complicating childbirth; Z87.891 Personal history of nicotine dependence

== ENCOUNTER → 2021-07-25 | Outpatient (REF) | payer OTHER ==
[~2021-07-25] MED LIST changes: +ACET-683 PO; +IBUP80TA PO
[2021-07-25 17:18] LABS: C REACTIVE PROTEIN QUANTITATIV < 0.30 MG/DL (0.00-0.30); RHEUMATOID FACTOR QUANT < 10.0 IU/ML (<15.0); URIC ACID 3.5 MG/DL (2.6-6.0)
[2021-07-27 16:08] LABS: ANTI DOUBLE STRAND-DNA AB 4 IU/mL (0-9); ANTINUCLEAR ANTIBODIES DIRECT Positive (Negative); Lyme Disease IgG/IgM Antibodie <0.91 ISR (0.00-0.90); Lyme Disease IgM Ab Quantitati <0.80 index (0.00-0.79); RNP ANTIBODIES 2.9 AI (0.0-0.9); SJOGREN'S ANTI SS-A <0.2 AI (0.0-0.9); SJOGREN'S ANTI SS-B <0.2 AI (0.0-0.9); SMITH ANTIBODIES <0.2 AI (0.0-0.9)
== END ==
LOC: M LAB REF 16:12
PROVIDERS: ATTEND Physician Assistant
DX: M25.50 Pain in unspecified joint (principal); R53.1 Weakness

== ENCOUNTER 2021-09-09 08:42 | Day surgery (SDC) | payer OTHER ==
[~2021-09-09] VITALS: Ht 162.6 cm; Wt 51.7 kg
[~2021-09-09 08:42] MED LIST changes: +ADDE20CA3 PO; +AMPH1CAP5 PO; +KLON1TAB PO; +LORA-674 PO; +NEXP1IMP SC; +NS 1,000 ML IV ONE; +OMEP40CA5 PO; +TRAZ-252 PO; +WELL100T2 PO; +ZOLO100T PO
[2021-09-09] MEDS ORDERED: fentaNYL 100 MCG/2 ML INJECTION As Ordered ONE (10:10)
[2021-09-09] MEDS ORDERED: propofoL 200 MG/20 ML VIAL As Ordered ONE (10:25)
[2021-09-09] MEDS ORDERED: propofoL 500 MG/50 ML VIAL As Ordered ONE (10:26)
[2021-09-09 10:57] VITALS: BP 104/58
== END 2021-09-09 11:00 | disposition home or self-care (01) ==
LOC: M OPP 08:42
PROVIDERS: ATTEND Internal Medicine Gastroenterology
DX: K59.04 Chronic idiopathic constipation (principal); K31.89 Other diseases of stomach and duodenum; R13.10 Dysphagia, unspecified; R12 Heartburn; Z79.899 Other long term (current) drug therapy; Z79.3 Long term (current) use of hormonal contraceptives; F17.210 Nicotine dependence, cigarettes, uncomplicated
CPT/HCPCS: 43239; 43249; 45378; 88305; J3010

== ENCOUNTER → 2021-11-01 | Outpatient (REF) | payer OTHER ==
[~2021-11-01] MED LIST changes: -NS 1,000 ML IV ONE
[2021-11-01 12:20] LABS: BASO # 0.1 10^3/uL (0.0-0.2); BASO % 0.9 % (0.0-1.0); EOS # 0.2 10^3/uL (0.0-0.5); EOS % 4.2 % (0.0-3.0); HEMATOCRIT 33.9 % (36.0-47.0); HEMOGLOBIN 10.7 g/dl (12.0-15.5); LYMPH # 3.1 10^3/uL (1.5-5.0); LYMPH % 56.3 % (24.0-44.0); MEAN CORPUSCULAR HEMOGLOBIN 27.2 pg (27.0-33.0); MEAN CORPUSCULAR HGB CONC 31.6 g/dl (32.0-36.5); MONO # 0.5 10^3/uL (0.0-0.8); MONO % 8.1 % (2.0-8.0); NEUTROPHILS # 1.7 10^3/uL (1.5-8.5); NEUTROPHILS % 30.5 % (36.0-66.0); PLATELET COUNT, AUTOMATED 321 10^3/uL (150-450); RED BLOOD COUNT 3.94 10^6/uL (4.00-5.40); WHITE BLOOD COUNT 5.5 10^3/uL (4.0-10.0)
[2021-11-01 12:21] LABS: ALBUMIN 3.7 GM/DL (3.2-5.2); ALT/SGPT 18 U/L (12-78); BILIRUBIN,TOTAL 0.2 MG/DL (0.2-1.0); BLOOD UREA NITROGEN 15 MG/DL (7-18); CALCIUM LEVEL 8.9 MG/DL (8.5-10.1); CARBON DIOXIDE LEVEL 28 MEQ/L (21-32); CHLORIDE LEVEL 108 MEQ/L (98-107); COMPLEMENT C3 91 MG/DL (90-180); COMPLEMENT C4 28 MG/DL (10-40); GLOMERULAR FILTRATION RATE > 60.0 (>60); GLUCOSE, FASTING 105 MG/DL (70-100); LDH LACTATE DEHYDROGENASE 168 U/L (84-246); SODIUM LEVEL 141 MEQ/L (136-145); TOTAL PROTEIN 6.9 GM/DL (6.4-8.2)
[2021-11-01 12:39] LABS: APPEARANCE, URINE HAZY (CLEAR); BACTERIA, URINE AUTO NEGATIVE (NEGATIVE); BILIRUBIN, URINE AUTO NEGATIVE (NEGATIVE); BLOOD, URINE BLOOD NEGATIVE (NEGATIVE); CALCIUM OXALATE CRYSTALS SMALL; COLOR, URINE YELLOW (YELLOW); GLUCOSE, URINE (UA) AUTO NEGATIVE (NEGATIVE); KETONE, URINE AUTO NEGATIVE (NEGATIVE); LEUKOCYTE ESTERASE, URINE AUTO NEGATIVE (NEGATIVE); MUCUS, URINE SMALL (NEGATIVE); NITRITE, URINE AUTO NEGATIVE (NEGATIVE); PROTEIN, URINE AUTO NEGATIVE (NEGATIVE); RBC, URINE AUTO 1 /HPF (0-3); SPECIFIC GRAVITY URINE AUTO 1.023 (1.002-1.035); SQUAMOUS EPITHELIAL CELL UR AU 1 /HPF (0-6); WBC, URINE AUTO 2 /HPF (0-3)
[2021-11-01 12:51] LABS: ERYTHROCYTE SEDIMENTATION RATE 13 mm/hr (0-20)
[2021-11-04 14:24] LABS: ALDOLASE 3.2 U/L (3.3-10.3)
== END ==
LOC: M SFHCRHEU 09:29
PROVIDERS: ATTEND Internal Medicine Rheumatology
DX: R76.8 Other specified abnormal immunological findings in serum (principal); M35.3 Polymyalgia rheumatica; R68.2 Dry mouth, unspecified; R23.1 Pallor

== ENCOUNTER → 2021-11-01 | Outpatient (CLI) | payer OTHER | LOC: M RAD 10:22 | PROVIDERS: ATTEND Internal Medicine Rheumatology | DX: R76.8 Other specified abnormal immunological findings in serum (principal); M35.3 Polymyalgia rheumatica; R68.2 Dry mouth, unspecified; R23.1 Pallor ==

== ENCOUNTER 2021-12-18 11:39 | Day surgery (SDC) | payer OTHER ==
[~2021-12-18] VITALS: Ht 160 cm; Wt 48.9 kg
[~2021-12-18 11:39] MED LIST changes: +ETON68IM SC; +HYDR-3363; -NEXP1IMP SC; +NS 1,000 ML IV ONE; +TIZA2TA
[2021-12-18] MEDS ORDERED: propofoL 200 MG/20 ML VIAL As Ordered ONE (14:22)
[2021-12-18] MEDS ORDERED: LIDOCAINE 2% 100MG/5ML SDV (FOR ANES.) As Ordered ONE (14:22)
[2021-12-18 14:35] VITALS: BP 119/74
== END 2021-12-18 14:51 | disposition home or self-care (01) ==
LOC: M OPP 11:39
PROVIDERS: ATTEND Internal Medicine Gastroenterology
DX: R19.4 Change in bowel habit (principal); K64.0 First degree hemorrhoids; K58.9 Irritable bowel syndrome, unspecified; K21.9 Gastro-esophageal reflux disease without esophagitis; F41.0 Panic disorder [episodic paroxysmal anxiety]; F32.A Depression, unspecified; F43.10 Post-traumatic stress disorder, unspecified; J45.909 Unspecified asthma, uncomplicated; F17.200 Nicotine dependence, unspecified, uncomplicated; Z79.899 Other long term (current) drug therapy

== ENCOUNTER → 2022-02-21 | Outpatient (CLI) | payer OTHER ==
[~2022-02-21] MED LIST changes: +DEXTROAMP-AMPHETAMIN; -NS 1,000 ML IV ONE
[2022-02-21 17:15] LABS: BASO # 0.1 10^3/uL (0.0-0.2); BASO % 0.7 % (0.0-1.0); EOS # 0.2 10^3/uL (0.0-0.5); EOS % 2.5 % (0.0-3.0); HEMATOCRIT 34.3 % (36.0-47.0); HEMOGLOBIN 10.7 g/dl (12.0-15.5); LYMPH # 2.8 10^3/uL (1.5-5.0); LYMPH % 40.6 % (24.0-44.0); MEAN CORPUSCULAR HEMOGLOBIN 27.2 pg (27.0-33.0); MEAN CORPUSCULAR HGB CONC 31.2 g/dl (32.0-36.5); MEAN CORPUSCULAR VOLUME 87.3 fl (80.0-96.0); MONO # 0.6 10^3/uL (0.0-0.8); MONO % 8.9 % (2.0-8.0); NEUTROPHILS # 3.2 10^3/uL (1.5-8.5); NEUTROPHILS % 47.2 % (36.0-66.0); PLATELET COUNT, AUTOMATED 272 10^3/uL (150-450); RED BLOOD COUNT 3.93 10^6/uL (4.00-5.40); WHITE BLOOD COUNT 6.9 10^3/uL (4.0-10.0)
[2022-02-21 19:29] LABS: ALBUMIN 4.1 GM/DL (3.2-5.2); ALT/SGPT 23 U/L (12-78); BILIRUBIN,TOTAL 0.3 MG/DL (0.2-1.0); BLOOD UREA NITROGEN 14 MG/DL (7-18); CALCIUM LEVEL 8.8 MG/DL (8.5-10.1); CARBON DIOXIDE LEVEL 28 MEQ/L (21-32); CHLORIDE LEVEL 108 MEQ/L (98-107); CREATININE FOR GFR 0.86 MG/DL (0.55-1.30); FERRITIN 16 NG/ML (8-252); GLOMERULAR FILTRATION RATE > 60.0 (>60); GLUCOSE, FASTING 91 MG/DL (70-100); IRON (FE) 63 UG/DL (50-170); PERCENT SATURATION 15.1 % (13.2-45.0); POTASSIUM SERUM 4.9 MEQ/L (3.5-5.1); SODIUM LEVEL 140 MEQ/L (136-145); TOTAL IRON BINDING CAPACITY 418 UG/DL (250-450); TOTAL PROTEIN 7.3 GM/DL (6.4-8.2); VITAMIN B12 LEVEL 1231 PG/ML (247-911)
== END ==
LOC: M LAB 16:18
PROVIDERS: ATTEND Specialist
DX: M85.9 Disorder of bone density and structure, unspecified (principal)

== ENCOUNTER → 2022-06-25 | Outpatient (CLI) | payer OTHER ==
[~2022-06-25] MED LIST changes: +ASCO500C3 PO; +METH-1022; -PURE500C5 PO
== END ==
LOC: M PLAIMG 14:55
PROVIDERS: ATTEND Nurse Practitioner Primary Care
DX: M25.431 Effusion, right wrist (principal); M85.441 Solitary bone cyst, right hand; M65.4 Radial styloid tenosynovitis [de Quervain]

== ENCOUNTER → 2022-12-23 | Outpatient (CLI) | payer OTHER ==
[~2022-12-23] MED LIST changes: +ASPI-655 PO; -ASPI1CHW3 PO; +CLON1TAB8 PO; +GABA-1171 PO; +METH-1022 PO; +OMEP-173 PO; +TIZA10TA PO
== END ==
LOC: M SOG 15:26
PROVIDERS: ATTEND Physician Assistant
DX: M25.531 Pain in right wrist (principal)

== ENCOUNTER 2022-12-26 06:53 | Day surgery (SDC) | payer OTHER ==
[~2022-12-26] VITALS: Ht 161.3 cm; Wt 54.3 kg
[~2022-12-26 06:53] MED LIST changes: -METH-1022 PO
[2022-12-26] MEDS ORDERED: LIDOCAINE W/EPINEPHRINE 1% 20ML VIAL XX ONE (07:30)
[2022-12-26] MEDS ORDERED: SODIUM BICARBONATE 8.4% INJ 50MEQ 50ML VIAL XX ONE (07:30)
[2022-12-26] MEDS ORDERED: BACITRACIN OINTMENT 30GM TUBE As Ordered ONE (07:57)
[2022-12-26] MEDS ORDERED: METH-1022 PO (08:14)
[2022-12-26 09:01] VITALS: BP 102/55; TEMP 98.3; O2SAT 100
== END 2022-12-26 09:11 | disposition home or self-care (01) ==
LOC: M SDC 06:53
PROVIDERS: ATTEND Orthopaedic Surgery Hand Surgery
DX: M65.4 Radial styloid tenosynovitis [de Quervain] (principal); D64.9 Anemia, unspecified; J45.909 Unspecified asthma, uncomplicated; K21.9 Gastro-esophageal reflux disease without esophagitis; K58.8 Other irritable bowel syndrome; F43.10 Post-traumatic stress disorder, unspecified; F41.9 Anxiety disorder, unspecified; F32.A Depression, unspecified; F17.210 Nicotine dependence, cigarettes, uncomplicated; Z79.899 Other long term (current) drug therapy